=== PATIENT | male | born 1995 ===

== ENCOUNTER 2017-03-16 14:05 | Emergency (ER) | payer OTHER ==
--- NOTE | 2017-03-16 14:41 | RAD ---
INDICATION: RIGHT fifth metacarpal phalangeal joint region pain following punching injury 5 days ago. COMPARISON: None. TECHNIQUE: AP, lateral, and oblique views RIGHT hand. REPORT: Mildly impacted fracture at the distal metaphysis of the fifth metacarpal with approximate 40 degrees apex dorsal ulnar angulation. Overlying soft tissue swelling. Negative for additional fracture or articular malalignment. IMPRESSION: Boxer's fracture.
--- NOTE | 2017-03-16 14:58 | UC ---
Hand/Wrist HPI - HPI Summary HPI Summary: Punched wall 4 days ago, has had pain, swelling, and bruising over R 5th MCP joint since then. No prior fx or sx. - History Of Current Complaint Chief Complaint: UCUpperExtremity Stated Complaint: HAND INJURY Time Seen by Provider: 03/16/17 14:27 Hx Obtained From: Patient ?: No Onset/Duration: Sudden Onset Severity Initially: Moderate Severity Currently: Moderate Character Of Pain: Dull, Aching, Stiffness Aggravating Factor(s): Movement Alleviating: Rest, Ice Associated Signs And Symptoms: Positive: Swelling, Bruising Related History: Dominant Hand Right - Allergies/Home Medications Allergies/Adverse Reactions: Allergies Allergy/AdvReac Type Severity Reaction Status Date / Time No Known Allergies Allergy Verified 03/16/17 14:11 Home Medications: Home Medications NK [No Home Medications Reported] 03/16/17 [History Confirmed 03/16/17] PMH/Surg Hx/FS Hx/Imm Hx Previously Healthy: Yes - Surgical History Surgical History: None - Family History Known Family History: Negative: Blood Disorder - Social History Occupation: Student Lives: Alone Alcohol Use: Occasionally Substance Use Type: Marijuana Substance Use Comment - Amount & Last Used: occasional use. Smoking Status (MU): Former Smoker When Did the Patient Quit Smoking/Using Tobacco: 8 months ago Review of Systems Constitutional: Negative Skin: Negative Eyes: Negative ENT: Negative Respiratory: Negative Cardiovascular: Negative Gastrointestinal: Negative Genitourinary: Negative Motor: Negative Neurovascular: Negative Musculoskeletal: Decreased ROM - R hand swelling and bruising Neurological: Negative Psychological: Negative All Other Systems Reviewed And Are Negative: Yes Physical Exam Triage Information Reviewed: Yes Appearance: Well-Appearing, Well-Nourished Vital Signs: Initial Vital Signs Temp 98.8 F 03/16/17 14:11 Pulse 88 03/16/17 14:11 Resp 14 03/16/17 14:11 BP 139/71 03/16/17 14:11 Pulse Ox 99 03/16/17 14:11 Vital Signs Reviewed: Yes Eye Exam: Normal Eyes: Positive: Conjunctiva Clear ENT Exam: Normal ENT: Positive: Normal ENT inspection, Hearing grossly normal, Pharynx normal, TMs normal Dental Exam: Normal Neck exam: Normal Neck: Positive: Supple, Nontender, No Lymphadenopathy Respiratory Exam: Normal Respiratory: Positive: Chest non-tender, Lungs clear, Normal breath sounds, No respiratory distress, No accessory muscle use Cardiovascular Exam: Normal Cardiovascular: Positive: RRR, No Murmur Musculoskeletal Exam: Other - tender over R 5th MCP joint Musculoskeletal: Positive: ROM Limited @ - R flexible babysitter Neurological Exam: Normal Neurological: Positive: Alert Psychological Exam: Normal Skin Exam: Normal Procedures - Splinting Location: R hand Hand-Made Type: orthoglass Splint: ulnar Pre-Proc Neuro Vasc Exam: normal Post-Proc Neuro Vasc Exam: normal Hand/Wrist Course/Dx - Differential Dx/Diagnosis Provider Diagnoses: R 5th metacarpal boxer's fracture closed, nondisplaced Discharge - Discharge Plan Condition: Stable Disposition: HOME Patient Education Materials: Boxer Fracture (ED) Referrals: Miah Tamez MD [Medical Doctor] - 5 Days Additional Instructions: Please follow up with your orthopedist at home if you still leave this weekend. Keep the splint on all the time and don't get it wet (you'll need to protect it in order to bathe).
== END 2017-03-16 15:00 | disposition home or self-care (01) ==
LOC: UCCORT 14:05
DX: S62.306A Unspecified fracture of fifth metacarpal bone, right hand, initial encounter for closed fracture (principal); W22.8XXA Striking against or struck by other objects, initial encounter; Y93.9 Activity, unspecified; Y92.9 Unspecified place or not applicable; F12.90 Cannabis use, unspecified, uncomplicated; Z87.891 Personal history of nicotine dependence
CPT/HCPCS: 99201; G0463